=== PATIENT | female | born 1995 | race Caucasian/White ===

== ENCOUNTER 2017-05-26 21:47 | Emergency (ER) | payer OTHER ==
[~2017-05-26] VITALS: Ht 170.2 cm; Wt 100.0 kg
[2017-05-26] MEDS ORDERED: ALBU8HFA IH (22:07)
[2017-05-26] MEDS ORDERED: ETON68IM3 SD (22:07)
[2017-05-26 23:03] VITALS: BP 133/74
[2017-05-26] MEDS ORDERED: TraMADol HCL 50 MG TABLET PO ONE (23:15)
== END 2017-05-27 00:34 | disposition home or self-care (01) ==
LOC: EMS 21:49
DX: S60.022A Contusion of left index finger without damage to nail, initial encounter (principal); J45.909 Unspecified asthma, uncomplicated; W23.0XXA Caught, crushed, jammed, or pinched between moving objects, initial encounter; Y93.89 Activity, other specified; Y92.89 Other specified places as the place of occurrence of the external cause; Y99.8 Other external cause status
CPT/HCPCS: 81025; 99284